=== PATIENT | male | born 1960 | race African-American/Black ===

== ENCOUNTER 2018-04-23 09:24 | Emergency (ER) | payer MEDICAID ==
[~2018-04-23] VITALS: Ht 175.3 cm; Wt 60.0 kg
[~2018-04-23 09:24] MED LIST: BENA10TA10 PO; CHOL20004 PO; CLON1TAB PO; PHEN100C4 PO; SERT-112 PO; SIMV10TA6 PO; TRAZ-213 PO
[2018-04-23 09:28] VITALS: BP 104/69
== END 2018-04-23 12:25 | disposition left against medical advice (07) ==
LOC: ER 10:14
DX: Z53.21 Procedure and treatment not carried out due to patient leaving prior to being seen by health care provider (principal)

== ENCOUNTER 2022-03-15 06:47 | Emergency (ER) | payer MEDICAID, OTHER ==
[~2022-03-15] VITALS: Ht 170.2 cm; Wt 71.0 kg
[~2022-03-15 06:47] MED LIST changes: -BENA10TA10 PO; +BENA10TA74 PO; -SIMV10TA6 PO; +SIMV10TA97 PO; -TRAZ-213 PO; +TRAZ-252 PO
[2022-03-15 07:03] VITALS: BP 165/102
[2022-03-15] MEDS ORDERED: TOPUD PO (10:20)
== END 2022-03-15 10:55 | disposition home or self-care (01) ==
LOC: ER 06:47
DX: S00.93XA Contusion of unspecified part of head, initial encounter (principal); E11.9 Type 2 diabetes mellitus without complications; E78.00 Pure hypercholesterolemia, unspecified; I10 Essential (primary) hypertension; Z86.59 Personal history of other mental and behavioral disorders; Y04.0XXA Assault by unarmed brawl or fight, initial encounter; Y93.89 Activity, other specified; Y92.89 Other specified places as the place of occurrence of the external cause; Y99.8 Other external cause status
CPT/HCPCS: 70486; 76512; 99284